=== PATIENT | male | born 1950 | race Asian ===

== ENCOUNTER 2021-12-09 06:13 | Day surgery (SDC) | payer OTHER ==
[~2021-12-09] VITALS: Ht 177.8 cm; Wt 101.0 kg
[~2021-12-09 06:13] MED LIST: AMLO10 PO; ASPI81CH; ASPI81CH PO; CLON.1 PO; FLONASE ALLERG9.9 ML; LISI20 PO; SIMV10 PO; TELM80 PO; TRIHYD5075 PO
[2021-12-09] MEDS ORDERED: DIPH25 PO (06:34)
--- NOTE | 2021-12-09 10:07 | NUR ---
PT HR IN THE 30'S, COMPLAINING OF SOME EPIGASTRIC PAIN, DR GRIJALVA NOTIFIED AND 12L EKG SENT AND REVIEWED. PT FLUCTUATING FROM 40-50'S NOW AND PAIN BETTER. DR GRIJALVA TO STOP IN SOON
--- NOTE | 2021-12-09 13:02 | NUR ---
DR GRIJALVA IN TO SEE PT R/T EARLIER KAEL, STATES PT STABLE AND DC AT 1300, PT UP TO BTR NOW, IV DC'D TIP INTACT, DRESSED, DC'D BY WC WITH DRIVING PT HOME
== END 2021-12-09 13:37 | disposition home or self-care (01) ==
LOC: MHTC 06:13
PROC: 4A023N7 Measurement of Cardiac Sampling and Pressure, Left Heart, Percutaneous Approach (ICD-10-PCS; principal; 2021-12-09)
PROC: B2111ZZ Fluoroscopy of Multiple Coronary Arteries using Low Osmolar Contrast (ICD-10-PCS; principal; 2021-12-09)
DX: I44.7 Left bundle-branch block, unspecified (principal); I51.9 Heart disease, unspecified; I47.2 Ventricular tachycardia; I77.810 Thoracic aortic ectasia; I10 Essential (primary) hypertension; E78.5 Hyperlipidemia, unspecified; Z79.82 Long term (current) use of aspirin; Z79.899 Other long term (current) drug therapy
CPT/HCPCS: 76937; 93005; 93010; 93454; 99152; 99153; C1769; C1887; C1894; J1644; J2250; J3010; J7030; J7040; Q9967

== ENCOUNTER → 2023-06-03 | Outpatient (CLI) | payer OTHER ==
[~2023-06-03] MED LIST changes: +CARV6.25 PO; +DIPH25 PO
== END ==
LOC: LAB 14:21 → LAB SHORT 14:21
DX: L91.8 Other hypertrophic disorders of the skin (principal)
CPT/HCPCS: 88304